=== PATIENT | female | born 1990 | race Two or more races ===

== ENCOUNTER 2020-06-16 14:40 | Emergency (ER) | payer OTHER ==
[~2020-06-16] VITALS: Ht 162.6 cm; Wt 75.7 kg
== END 2020-06-16 19:11 | disposition home or self-care (01) ==
LOC: ER 14:40
DX: O26.892 Other specified pregnancy related conditions, second trimester (principal); N23 Unspecified renal colic; O23.33 Infections of other parts of urinary tract in pregnancy, third trimester; Z3A.23 23 weeks gestation of pregnancy